=== PATIENT | female | born 1990 | race Caucasian/White ===

== ENCOUNTER 2016-11-07 14:44 | Emergency (ER) | payer BC, OTHER ==
[2016-11-07] MEDS ORDERED: LIDOCAINE 2% 20 ML ONE (15:16)
[2016-11-07] MEDS ORDERED: TDaP 0.5 ML VIAL IM.VACC ONE (16:53)
== END 2016-11-07 17:48 | disposition home or self-care (01) ==
LOC: ER 14:44
DX: L60.0 Ingrowing nail (principal); B35.1 Tinea unguium; Z23 Encounter for immunization; F17.210 Nicotine dependence, cigarettes, uncomplicated
CPT/HCPCS: 90471